=== PATIENT | male | born 1985 | race Two or more races ===

== ENCOUNTER 2018-08-26 20:41 | Emergency (ER) | payer MEDICAID ==
[~2018-08-26] VITALS: Ht 177.8 cm; Wt 85.0 kg
[2018-08-26 20:46] VITALS: BP 145/94
== END 2018-08-26 22:21 | disposition home or self-care (01) ==
LOC: ED 21:55
DX: S91.312A Laceration without foreign body, left foot, initial encounter (principal); W25.XXXA Contact with sharp glass, initial encounter; Y93.89 Activity, other specified; Y92.830 Public park as the place of occurrence of the external cause; Y99.8 Other external cause status
CPT/HCPCS: 12042; 99284